=== PATIENT | female | born 1970 | race Caucasian/White ===

== ENCOUNTER → 2019-01-11 | Outpatient (CLI) | payer BC ==
--- NOTE | 2019-01-12 08:36 | RAD ---
EXAM: LUMBAR SPINE 3 VIEWS. HISTORY: Low back pain and lumbar radiculopathy. COMPARISON: None. FINDINGS: There is a mild lower lumbar dextrocurvature. There is grade 1 anterolisthesis from L3 through L5. Clear pars defects are not demonstrated by radiographs. Facet osteoarthritis appears moderate to severe from L3 through S1. Vertebral body heights are maintained, and no fractures are identified. Degenerative disc disease is moderate from L3 through L5, moderate to severe at L5-S1 and minimal more superiorly. IMPRESSION: 1. Grade 1 anterolisthesis from L3 through L5 mostly from moderate to severe facet osteoarthritis. 2. Degenerative disc disease is moderate to severe at L5-S1, moderate from L3 through L5 and mild more superiorly. Electronically signed by: Hanh Cassidy MD (01/12/2019 8:33 AM) [facility]
== END | disposition home or self-care (01) ==
LOC: RAD 16:04
PROVIDERS: ATTEND Nurse Practitioner Gerontology
DX: M47.26 Other spondylosis with radiculopathy, lumbar region (principal); M51.16 Intervertebral disc disorders with radiculopathy, lumbar region; M43.16 Spondylolisthesis, lumbar region; M47.818 Spondylosis without myelopathy or radiculopathy, sacral and sacrococcygeal region
CPT/HCPCS: 72100

== ENCOUNTER → 2019-01-27 | Outpatient (CLI) | payer BC ==
--- NOTE | 2019-01-27 11:04 | KCIC ---
MRI of the lumbar spine without contrast 01/27/2019 CLINICAL HISTORY: Low back pain which radiates down the right leg worsening over the last 3 months. TECHNIQUE: Unenhanced T1-weighted and T2-weighted sagittal and axial and inversion recovery sagittal images of the lumbar spine were obtained. FINDINGS: Comparison is made to radiographs of the lumbar spine dated 01/11/2019. Very mild S-shaped curvature of the thoracolumbar spine is seen. Mild anterolisthesis of L3 in relation to L4 and L4 in relation to L5 is noted. Degenerative signal changes are seen involving L3-4, L4-5 and L5-S1 discs. Degenerative signal changes are seen within the marrow surrounding these discs. The conus medullaris is normal morphology, position, and signal characteristics. Increased signal intensity is seen involving right sacral ala on the T2-weighted and recovery images. This demonstrates decreased signal intensity on T1-weighted images. These findings are consistent with acute sacral insufficiency fracture. At the L1-2 and L2-3 disc spaces there are minimal generalized disc bulges. Degenerative changes involving the facet joints bilaterally. There is mild ligamentum flavum hypertrophy bilaterally. These findings do not result in significant central spinal canal or neural foraminal stenosis. At the L3-4 disc space there is a mild to moderate generalized disc bulge. Degenerative changes are seen involving the facet joints bilaterally. There is moderate ligamentum flavum hypertrophy bilaterally. These findings when combined result in moderate to severe central spinal canal stenosis. Mild right greater than left neural foraminal stenosis is seen. At the L4-5 disc space there is a mild generalized disc bulge. Degenerative changes are seen involving the facet joints bilaterally. There is mild ligamentum flavum hypertrophy bilaterally. These findings when combine result in mild central spinal canal stenosis. No neural foraminal stenosis is seen. At the L5-S1 disc space there is a mild generalized disc bulge. Degenerative changes are seen involving the facet joints bilaterally. These findings when combined do not result in significant central spinal canal or neural foraminal stenosis. IMPRESSION: 1. The changes of degenerative disc disease are seen throughout the lumbar spine. These findings result in moderate to severe central spinal canal stenosis at L3-4 and mild central spinal canal stenosis at L4-5. Mild right greater than left neural foraminal stenosis is seen at L3-4. 2. Findings are seen consistent with an acute insufficiency fracture involving the right sacral ala. Electronically signed by: Braulio Beaver MD (01/27/2019 11:01 AM) [id number]
== END | disposition home or self-care (01) ==
LOC: KCIC MRI 07:44
PROVIDERS: ATTEND Nurse Practitioner Gerontology
DX: M51.16 Intervertebral disc disorders with radiculopathy, lumbar region (principal); M48.061 Spinal stenosis, lumbar region without neurogenic claudication; M51.17 Intervertebral disc disorders with radiculopathy, lumbosacral region; E11.9 Type 2 diabetes mellitus without complications
CPT/HCPCS: 72148

== ENCOUNTER → 2020-04-17 | Outpatient (CLI) | payer BC ==
[~2020-04-17] MED LIST: ZOLPIDEM 5 MG TABLET. PO ONE
== END ==
LOC: SLPLAB 18:59
PROVIDERS: ATTEND Family Medicine
DX: G47.30 Sleep apnea, unspecified (principal)
CPT/HCPCS: 95810

== ENCOUNTER 2020-09-03 08:39 | Outpatient (CLI) | payer BC ==
[2020-09-03] VITALS (12 sets, daily range): BP systolic 119–148; BP diastolic 50–75
[~2020-09-03] VITALS: Ht 165.1 cm; Wt 116.8 kg
[2020-09-03 09:17] LABS: BASO # 0.1 x10^3/uL (0.0-0.2); BASO % 1 % (0-3); EOS # 0.2 x10^3/uL (0.0-0.7); EOS % 3 % (0-3); HEMATOCRIT 39.7 % (36.0-47.0); HEMOGLOBIN 13.2 g/dL (12.0-15.5); LYMPH # 1.2 x10^3/uL (1.0-4.8); LYMPH % 17 % (24-48); MEAN CORPUSCULAR HEMOGLOBIN 33 pg (25-35); MEAN CORPUSCULAR HGB CONC 33 g/dL (31-37); MEAN CORPUSCULAR VOLUME 98 fL (79-100); MONO # 0.5 x10^3/uL (0.0-1.1); MONO % 7 % (0-9); NEUT % 72 % (31-73); PLATELET COUNT 206 x10^3/uL (140-400); RED BLOOD COUNT 4.03 x10^6/uL (3.50-5.40); RED CELL DISTRIBUTION WIDTH 14.2 % (11.5-14.5)
[2020-09-03 09:25] LABS: CALCIUM 9.8 mg/dL (8.5-10.1); CREATININE 0.5 mg/dL (0.6-1.0); GFR 129.6; POTASSIUM 4.9 mmol/L (3.5-5.1)
[2020-09-03] MEDS ORDERED: HYDR12.58 PO (09:34)
[2020-09-03] MEDS ORDERED: NAPR500T8 PO (09:34)
[2020-09-03] MEDS ORDERED: SITA100T PO (09:34)
[2020-09-03] MEDS ORDERED: VIT (09:34)
[2020-09-03] MEDS ORDERED: CITA20TA6 PO (09:34)
[2020-09-03] MEDS ORDERED: OLME20TA17 PO (09:34)
[2020-09-03] MEDS ORDERED: GABA800T5 PO (09:34)
[2020-09-03] MEDS ORDERED: ATEN50TA PO (09:34)
[2020-09-03] MEDS ORDERED: CETI10TA16 PO (09:34)
[2020-09-03] MEDS ORDERED: ACET325T9 PO (09:34)
[2020-09-03] MEDS ORDERED: PNV1TABL78 PO (09:34)
[2020-09-03] MEDS ORDERED: FURO-69 PO (09:34)
[2020-09-03] MEDS ORDERED: POTASSIUM PO (09:34)
[2020-09-03] MEDS ORDERED: IOHEXOL 300 MG/ML 100ML VIAL. ONE (10:01)
[2020-09-03] MEDS ORDERED: LIDOCAINE 1% PF 2 ML VIAL. ONE (10:01)
[2020-09-03] MEDS ORDERED: fentaNYL PF VIAL 100 MCG/2 ML VIAL ONE (10:09)
[2020-09-03] MEDS ORDERED: MIDAZOLAM HCL/PF 2 MG/2 ML VIAL. ONE ×2 (10:09→10:49)
[2020-09-03] MEDS ORDERED: NITROGLYCERIN 200 MCG/2 ML SYRINGE FOR CATH/VASC LAB. ONE (10:10)
[2020-09-03] MEDS ORDERED: VERAPAMIL 5 MG/2 ML VIAL. ONE (10:10)
[2020-09-03] MEDS ORDERED: HEPARIN for IV BOLUS 10,000 UNIT/10 ML VIAL. ONE (10:10)
[2020-09-03] MEDS ORDERED: LIDOCAINE 1% PF 2 ML VIAL. INJ ONE (10:15)
[2020-09-03] MEDS ORDERED: IOHEXOL 300 MG/ML 100ML VIAL. IART ONE (10:15)
[2020-09-03] MEDS ORDERED: NITROGLYCERIN 200 MCG/2 ML SYRINGE FOR CATH/VASC LAB. IART ONE (10:15)
[2020-09-03] MEDS ORDERED: fentaNYL PF VIAL 100 MCG/2 ML VIAL IV ONE (10:15)
[2020-09-03] MEDS ORDERED: MIDAZOLAM HCL/PF 2 MG/2 ML VIAL. IV ONE (10:15)
[2020-09-03] MEDS ORDERED: VERAPAMIL 5 MG/2 ML VIAL. IART ONE (10:15)
[2020-09-03] MEDS ORDERED: HEPARIN for IV BOLUS 10,000 UNIT/10 ML VIAL. IART ONE (10:15)
--- NOTE | 2020-09-03 10:35 | PDOC ---
MODERATE SEDATION ASSESSMENT RISKS/ALTERNATIVES Risks/Alternatives Risks and alternatives of this type of sedation and procedure discussed with: RISK/ALTERNATIVES: Patient H & P ON CHART H & P H & P on chart and reviewed for co-morbid conditions and appropriate labs. H&P ON CHART: Yes STATUS PREG STATUS ASSESSED: N/A MEDS/ALLERGIES REVIEWED Meds/Allergies Reviewed Medications and Allergies including time and route of recently administered narcotics and sedatives. MEDS/ALLERGIES REVIEWED: Yes ASA RATING ASA RATING: II AIRWAY ASSESSMENT Airway Assessment Airway patency, oral function limitations, presence of caps, crowns, dentures, partials, and ability to extend neck assessed. AIRWAY ASSESSMENT: Yes MALLAMPATI SCORE MALLAMPATI SCORE: II PRE-SEDATION ASSESSMENT PRE-SEDATION ASSESSMENT: Yes SAMIA ROBERTO MD Sep 03, 2020 10:35
[2020-09-03] MEDS ORDERED: CONTRAST GIVEN. MC PRN (10:45)
[2020-09-03] MEDS ORDERED: IV 1/2 NORMAL SALINE 1,000 ML IV SCH (11:15)
--- NOTE | 2020-09-03 11:19 | CARD ---
MR#: [id number] Date of Study: 09/03/2020 Ordering Physician: SAMIA STOREY, Referring Physician: SAMIA STOREY, Tech: RT Sandy(R) APPROVED REPORT Technologist: RT Sandy(R) Nurse: Karime Bell RN Procedure(s) performed: Left heart catheterization and selective coronary angiography via right trans radial approach FLOURO TIME:6.2 MINUTES DOSE: 83.68 Gycm2 CONTRAST: 123CC'S OMNIPAQUE MODERATE SEDATION: 30 MINUTES INDICATION The indication(s) include : Chest pain and positive stress test concerning for unstable angina. [facility] Clinical Frailty Scale [facility] Clinical Frailty Scale: Managing Well Heart Failure Heart Failure: No CASE TECHNIQUE IV conscious sedation was used throughout procedure with appropriate monitoring and was performed in the presence of a registered nurse who was an independent trained observer other than the physician p erforming the procedure. During this case, Fluoroscopy and low osmolar contrast were used for imaging . Specimen(s) Removed: No Estimated Blood loss: 15 cc's. PROCEDURE NARRATIVE After explaining the risks, benefits and alternative options, informed consent was obtained from clotilde ent. Patient was brought to the cardiac [employer] and right wrist was prepped and draped in the usual fashion after confirming a positive modified Milo's test. Arterial access was obtained in the rig t radial artery and a 6 [place] sheath was inserted. 6 [place] JL 3.5 and 6 [place] JR4 catheters were used to perform selective angiography of the left and right coronary arteries after attempts to engag e these vessels using 6 [place] Luis Carlos catheter were unsuccessful. LVEDP and transaortic gradients wer e measured. Left ventriculography was not performed since recent 2D echo showed LVEF 60 to 65%. Pat ient tolerated the procedure well. Hemostasis was achieved using TR band. There were no immediate c omplications. The following findings were noted. FINDINGS 1. Hemodynamics: Left ventricular end-diastolic pressure of 16 mmHg. No pullback gradient across th e aortic valve. 2. Coronary angiography: a. The left main coronary artery arose from the left sinus of Valsalva, gave rise to the left anteri or descending and left circumflex arteries and did not show any significant stenosis. b. The left anterior descending artery did not show any significant stenosis. c. The left circumflex artery was a large and dominant vessel that did not show any significant sten osis. d. The right coronary artery was a small and nondominant vessel arising from the right sinus of Vals burns that did not show any significant stenosis. Conclusion No significant coronary artery disease Recommendations Cardiovascular risk factor modification Signed by : Samia Storey, Electronically Approved : 09/03/2020 11:19:28
[2020-09-03] MEDS ORDERED: METF500T16 PO (13:30)
--- NOTE | 2020-09-03 13:39 | NUR ---
TR band dc'd. Armboard reapplied. Discharge instructions reviewed with family. Pt discharged to home in private vehicle. {Pt ambulated and tolerated PO
== END 2020-09-03 13:42 | disposition home or self-care (01) ==
LOC: CCL 08:39
PROVIDERS: ATTEND Internal Medicine Cardiovascular Disease
DX: I20.0 Unstable angina (principal); R94.39 Abnormal result of other cardiovascular function study; R07.9 Chest pain, unspecified; I10 Essential (primary) hypertension; E78.00 Pure hypercholesterolemia, unspecified; E66.9 Obesity, unspecified; M19.90 Unspecified osteoarthritis, unspecified site; G47.30 Sleep apnea, unspecified; F41.9 Anxiety disorder, unspecified; F32.9 Major depressive disorder, single episode, unspecified; F17.210 Nicotine dependence, cigarettes, uncomplicated; Z90.49 Acquired absence of other specified parts of digestive tract; Z98.890 Other specified postprocedural states; Z79.899 Other long term (current) drug therapy; Z88.8 Allergy status to other drugs, medicaments and biological substances
CPT/HCPCS: 36415; 80048; 85025; 93458; 99152; 99153; C1769; C1894; J1644; J2250; J3010; J3490; Q9967

== ENCOUNTER → 2020-09-11 | Outpatient (CLI) | payer BC ==
[2020-09-03 13:10] VITALS: BP 128/50
[~2020-09-11] MED LIST changes: +ACET325T9 PO; +ATEN50TA PO; +CETI10TA16 PO; +CITA20TA6 PO; +FURO-69 PO; +GABA800T5 PO; +HYDR12.58 PO; +METF500T16 PO; +NAPR500T8 PO; +OLME20TA17 PO; +PNV1TABL78 PO; +POTASSIUM PO; +SITA100T PO; +VIT; -ZOLPIDEM 5 MG TABLET. PO ONE
--- NOTE | 2020-09-11 16:16 | RAD ---
XR CHEST 2V History: Reason: CHEST PAIN. / Spl. Instructions: / History: Comparison: None. Findings: No consolidation or pleural effusion. Normal heart size. No pneumothorax.. No acute osseous abnormali ties. Impression: No acute cardiopulmonary process. Electronically signed by: Giuliano Hauser DO (09/11/2020 4:13 PM) [id number]
== END ==
LOC: RAD 13:50
PROVIDERS: ATTEND Family Medicine
DX: R07.9 Chest pain, unspecified (principal)
CPT/HCPCS: 71046